=== PATIENT | female | born 1995 | race Caucasian/White ===

== ENCOUNTER → 2016-12-19 | Outpatient (CLI) | payer BC ==
[~2016-12-19] MED LIST: GADAVIST IV PRN; PATIENT'S ALLERGY INFO NEEDS ENTERED STA
--- NOTE | 2016-12-19 21:56 | DIAGNOSTIC IMAGING REPORT ---
MRI OF THE BRAIN AND PITUITARY WITHOUT A WITH GADOLINIUM CLINICAL HISTORY: Elevated prolactin level. A menorrhea. COMPARISON STUDY: No previous studies for comparison. FINDINGS: Imaging was performed the sagittal axial and coronal planes. Dynamic imaging through the pituitary was performed. The patient was administered 7 cc of intravenous Gadavist. Axial diffusion-weighted images reveal no evidence of acute or subacute infarction. There is no evidence of ventricular dilatation. Proton density T2-weighted and FLAIR images reveal no significant intraparenchymal signal abnormalities. The optic chiasm appears normal. The infundibulum is within the midline. There is an equivocal 3 mm focus of diminished enhancement involving the left lateral aspect of the pituitary gland. This could represent a tiny microadenoma. The pituitary gland appears otherwise normal measuring 6 mm in height. Whole brain post gadolinium images reveal no pathologically enhancing lesions. IMPRESSION: Equivocal tiny 3 mm left lateral pituitary microadenoma. Otherwise normal MRI of the brain. Electronically signed by: Roby Magana M.D. 12/19/2016 9:54 PM Dictated Date/Time: 12/19/2016 9:50 PM
== END | disposition home or self-care (01) ==
LOC: C.MRI 20:20
PROVIDERS: ATTEND Nurse Practitioner Obstetrics & Gynecology
DX: E22.1 Hyperprolactinemia (principal); N91.1 Secondary amenorrhea; D35.2 Benign neoplasm of pituitary gland

== ENCOUNTER 2017-05-21 01:52 | Emergency (ER) | payer BC ==
[~2017-05-21] VITALS: Ht 165.1 cm; Wt 71.8 kg
[2017-05-21 01:57] VITALS: Ht 165.1 cm; Wt 71.8 kg
[2017-05-21 02:26] LABS: BASO % 0.2 %; BASO ABS # 0.03 K/uL (0-0.2); EOS % 0.3 %; EOS ABS # 0.05 K/uL (0-0.5); HEMATOCRIT 46.5 % (37-47); IG# 0.08 K/uL (0.00-0.02); LYMPH % 10.4 %; LYMPH ABS # 2.03 K/uL (1.2-3.4); MEAN CELL VOLUME 97.9 fL (80-100); MEAN CORPUSCULAR HEMOGLOBIN 31.6 pg (25-34); MEAN CORPUSCULAR HGB CONC 32.3 g/dl (32-36); MONO % 4.6 %; MONO ABS # 0.89 K/uL (0.11-0.59); NEUT % 84.1 %; NEUT ABS # 16.42 K/uL (1.4-6.5); PLATELET COUNT 261 K/uL (130-400); RED CELL DISTRIBUTION WIDTH CV 12.9 % (11.5-14.5); RED CELL DISTRIBUTION WIDTH SD 46.3 fL (36.4-46.3)
--- NOTE | 2017-05-21 02:33 | EMERGENCY ROOM VISIT NOTE ---
History First contact with patient: 02:00 Chief Complaint: VOMITING Stated Complaint: VOMITING,CHEST PAIN,TROUBLE BREATHING History of Present Illness The patient is a 21 year old female who presents to the Emergency Room with complaints of a sharp pain in her right side. The patient reports that she has had a sharp pain in her right lower ribs/upper abdomen for the past 2 days. She states this pain worsens with a deep breath. She states that today, she has additionally developed pain in the middle and upper right abdomen. She has had multiple episodes of vomiting today. She states that she had been eating normally prior to this. The patient rates her discomfort a 2/10 at this time, but states that the pain comes in waves and becomes much more severe at times. She had one episode of diarrhea a few days ago, but otherwise her bowel movements have been normal. She denies urinary symptoms. She does take oral control pills and traveled to and from [place] last week. She denies any history of abdominal surgeries, but notes a family history of gallbladder disease. She does not smoke. She denies any personal or family history of blood clots. Review of Systems A complete 10 point review of systems was reviewed with the patient with pertinent positives and negatives as per history of present illness. All else were negative. Past Medical/Surgical History Medical Problems: (1) Hypothyroidism (2) Pituitary microadenoma Family History Gallbladder disease No Family History of: Thromboembolic disease Social History Smoking Status: Never Smoker Marital Status: single Housing Status: lives with roommate Occupation Status: [employer] student Current/Historical Medications Scheduled Levonorgestrel & Eth Estradiol (Vienva 0.1-20 mg-Mcg), 1 TAB PO DAILY Levothyroxine Sodium (Levothyroxine Sodium), 1 TAB PO DAILY Ondasetron Odt (Zofran Odt), 4 MG SL Q6H Physical Exam Vital Signs Date Time Temp Pulse Resp B/P (MAP) Pulse Ox O2 Delivery O2 Flow Rate FiO2 05/21/17 04:46 90 18 106/60 100 Room Air 05/21/17 03:42 36.7 99 18 114/77 100 Room Air 05/21/17 01:57 36.8 103 18 118/79 97 Room Air Physical Exam VITALS: Vitals are noted on the nurse's note and reviewed by myself. Vital signs stable. GENERAL: This is a 21-year-old female, in no acute distress, nondiaphoretic, well-developed well-nourished. SKIN: The skin was without rashes. EARS: External auditory canals clear, tympanic membranes pearly frazier without erythema or effusion bilaterally. EYES: Pupils equal round and reactive to light and accommodation. MOUTH: Mucous membranes moist. Tonsils are not enlarged. Pharynx without erythema or exudate. NECK: Supple without nuchal rigidity. No lymphadenopathy. HEART: Regular rate and rhythm without murmurs gallops or rubs. LUNGS: Clear to auscultation bilaterally without wheezes, rales or rhonchi. No retractions or accessory muscle use. ABDOMEN: Positive bowel sounds x 4. Soft, mild tenderness in the epigastric region. No guarding or rebound tenderness. NEURO: Patient was alert and oriented to person place and time. Medical Decision & Procedures ER Provider Diagnostic Interpretation: US RUQ: Normal right upper quadrant ultrasound Normal gallbladder without gallstones, wall thickening or pericholecystic fluid No intrahepatic or extrahepatic biliary ductal dilatation. Liver and pancreas appear unremarkable. Radiologist: Stu Pastor M.D. CT ABDOMEN & PELVIS With Contrast: Normal appendix. No bowel obstruction. Multiple fluid-filled loops of small bowel, possibly nonspecific enteritis. Liver, gallbladder, spleen, pancreas, adrenal glands, and kidneys are unremarkable. Urinary bladder and uterus appear normal. No acute osseous findings. Radiologist: Stu Pastor M.D. Laboratory Results 05/21/17 02:05 Red Blood Count 4.75, Mean Corpuscular Volume 97.9, Mean Corpuscular Hemoglobin 31.6, Mean Corpuscular Hemoglobin Concent 32.3, Mean Platelet Volume 9.0, Neutrophils (%) (Auto) 84.1, Lymphocytes (%) (Auto) 10.4, Monocytes (%) (Auto) 4.6, Eosinophils (%) (Auto) 0.3, Basophils (%) (Auto) 0.2, Neutrophils # (Auto) 16.42, Lymphocytes # (Auto) 2.03, Monocytes # (Auto) 0.89, Eosinophils # (Auto) 0.05, Basophils # (Auto) 0.03 05/21/17 02:05 Test 05/21/17 01:55 05/21/17 02:05 Urine Color DK YELLOW Urine Appearance CLEAR (CLEAR) Urine pH 5.0 (4.5-7.5) Urine Specific [place] 1.032 (1.000-1.030) Urine Protein NEG (NEG) Urine Glucose (UA) NEG (NEG) Urine Ketones TRACE (NEG) Urine Occult Blood TRACE (NEG) Urine Nitrite NEG (NEG) Urine Bilirubin NEG (NEG) Urine Urobilinogen NEG (NEG) Urine Leukocyte Esterase NEG (NEG) Urine WBC (Auto) 1-5 /hpf (0-5) Urine RBC (Auto) 0-4 /hpf (0-4) Urine Hyaline Casts (Auto) 0 /lpf (0-5) Urine Epithelial Cells (Auto) >30 /lpf (0-5) Urine Bacteria (Auto) NEG (NEG) Urine Test NEG (NEG) White Blood Count 19.50 K/uL (4.8-10.8) Red Blood Count 4.75 M/uL (4.2-5.4) Hemoglobin 15.0 g/dL (12.0-16.0) Hematocrit 46.5 % (37-47) Mean Corpuscular Volume 97.9 fL (80-100) Mean Corpuscular Hemoglobin 31.6 pg (25-34) Mean Corpuscular Hemoglobin Concent 32.3 g/dl (32-36) Platelet Count 261 K/uL (130-400) Mean Platelet Volume 9.0 fL (7.4-10.4) Neutrophils (%) (Auto) 84.1 % Lymphocytes (%) (Auto) 10.4 % Monocytes (%) (Auto) 4.6 % Eosinophils (%) (Auto) 0.3 % Basophils (%) (Auto) 0.2 % Neutrophils # (Auto) 16.42 K/uL (1.4-6.5) Lymphocytes # (Auto) 2.03 K/uL (1.2-3.4) Monocytes # (Auto) 0.89 K/uL (0.11-0.59) Eosinophils # (Auto) 0.05 K/uL (0-0.5) Basophils # (Auto) 0.03 K/uL (0-0.2) RDW Standard Deviation 46.3 fL (36.4-46.3) RDW Coefficient of Variation 12.9 % (11.5-14.5) Immature Granulocyte % (Auto) 0.4 % Immature Granulocyte # (Auto) 0.08 K/uL (0.00-0.02) D-Dimer < 190 ug/L FEU (0-500) Anion Gap 9.0 mmol/L (3-11) Est Creatinine Clear Calc Drug Dose 111.4 ml/min Estimated GFR () 123.0 Estimated GFR (Non- 106.1 BUN/Creatinine Ratio 22.9 (10-20) Calcium Level 8.4 mg/dl (8.5-10.1) Total Bilirubin 0.4 mg/dl (0.2-1) Direct Bilirubin 0.1 mg/dl (0-0.2) Aspartate Amino Transf (AST/SGOT) 26 U/L (15-37) Alanine Aminotransferase (ALT/SGPT) 43 U/L (12-78) Alkaline Phosphatase 58 U/L (45-117) Total Protein 8.1 gm/dl (6.4-8.2) Albumin 4.1 gm/dl (3.4-5.0) Lipase 123 U/L (73-393) Medications Administered Medications (Trade) Dose Ordered Sig/Kevin Route Start Time Stop Time Status Last Admin Dose Admin Ondansetron HCl (Zofran Inj) 4 mg NOW STAT IV 05/21/17 03:01 05/21/17 03:02 DC 05/21/17 03:05 4 MG Sodium Chloride 1,000 ml @ 999 mls/hr Q1H1M STAT IV 05/21/17 03:01 05/21/17 04:01 DC 05/21/17 03:05 999 MLS/HR Ondansetron HCl (ZOFRAN ODT 4MG Home Pack) 1 homepack UD ONCE PO 05/21/17 05:00 05/21/17 05:01 DC 05/21/17 05:02 1 HOMEPACK ECG Per My Interpretation Indication: abdominal pain Rate (beats per minute): 81 Rhythm: sinus with SA Findings: no acute ischemic change, no ectopy Comparison ECG Date: no prior available ED Course The patient was evaluated as above. Labs were drawn and IV access was obtained. Patient initially declined any medications. The patient became nauseous and had an episode of vomiting. She was medicated with 1 L normal saline solution and 4 mg Zofran. Patient was reevaluated and findings were discussed. She was feeling much better. She was given something to drink and tolerated it well. Discharge instructions were reviewed with the patient. The patient verbalized understanding of my assessment and treatment plan and was discharged home in good condition. Medical Decision Differential diagnosis includes cholecystitis, gastritis, gastroenteritis, appendicitis, small bowel obstruction, ovarian cyst, ovarian torsion, ectopic , hepatitis, pancreatitis, among others. The patient is a 21-year-old female who presents today complaining of right upper abdominal pain and vomiting. Labs revealed leukocytosis of 19,000. Labs were otherwise unremarkable. LFTs were within normal limits. Lipase was not elevated. Urinalysis was not suggestive of infection. Urine was negative. D-dimer was not elevated. Right upper quadrant ultrasound was initially performed and showed no evidence of gallbladder disease. CT was then performed due to patient's leukocytosis and symptoms and showed findings consistent with nonspecific enteritis. Patient is afebrile and well-appearing. She tolerated fluids after treatment with Zofran. She will be discharged home with Zofran and was instructed to follow-up with [facility] today for a repeat examination. She will return here for worsening symptoms. The patient's case was reviewed with Dr. Glasgow, ED attending physician, who agreed with my assessment and treatment plan. Based on the patient's presentation and work up, I feel the patient is stable for outpatient treatment. The patient was educated to return to the emergency department for any worsening of their current condition or new/concerning symptoms. She will follow up with [facility]. Medication Reconcilliation Current Medication List: was personally reviewed by me Blood Pressure Screening Patient's blood pressure: Normal blood pressure Impression Primary Impression: Vomiting Additional Impression: Enteritis Departure Information Dispostion Home / Self-Care Condition GOOD Prescriptions Ondasetron Odt (ZOFRAN ODT) 4 Mg Tab 4 MG SL Q6H for Nausea, #15 TAB Prov: Shagufta Ren .FLOR 05/21/17 Referrals [facility] (PCP) Patient Instructions My [facility] Additional Instructions You have been treated in the Emergency Department for your Abdominal Pain. Laboratory results and imaging studies have ruled out any emergent causes for your abdominal pain which would warrant admission or surgery. Your CT scan showed evidence of a gastroenteritis (most likely viral). You have been prescribed Zofran to be used for any nausea or vomiting. Take as prescribed. For pain control, you can use the following [id number] medicines (if >12 yo): - Regular strength (325mg/tab) Tylenol (acetaminophen) 2 tabs every 4-6 hours as needed. Do not exceed 12 tablets in a 24 hour period. Avoid taking more than 4 grams (4000 mg) of Tylenol per day. This includes any other sources of acetaminophen you may take on a regular basis. - Regular strength (200 mg/tab) Advil (ibuprofen) 1-2 tabs every 4-6 hours as needed. Do not exceed a dose of 3200 mg per day. Drink plenty of water and stay well hydrated. You should keep a very bland diet (crackers, toast, applesauce, bananas) until you are feeling better, then advance your diet as tolerated. Contact [facility] to schedule a follow-up appointment later today for recheck. Return to the emergency department if your symptoms persist despite treatment plan outlined above or if the following symptoms occur: Worsening pain, inability to keep anything down, high fever or other new/concerning symptoms. Problem Qualifiers Primary Impression: Vomiting Vomiting type: unspecified Vomiting Intractability: non-intractable Nausea presence: with nausea Qualified Codes: R11.2 - Nausea with vomiting, unspecified
[2017-05-21 02:44] LABS: ALBUMIN 4.1 gm/dl (3.4-5.0); CALCIUM 8.4 mg/dl (8.5-10.1); CREATININE 0.8 mg/dl (0.60-1.20); POTASSIUM 3.5 mmol/L (3.5-5.1)
[2017-05-21 02:47] LABS: TOTAL PROTEIN 8.1 gm/dl (6.4-8.2)
[2017-05-21] MEDS ORDERED: SODIUM CHLORIDE 0.9% 1000ML 1,000 ML IV STA (03:01)
[2017-05-21] MEDS ORDERED: ONDANSETRON INJ 2 MG/ML 2 ML VIAL IV STA (03:01)
[2017-05-21] MEDS ORDERED: OPTIRAY 320 IV PRN (03:30)
[2017-05-21 03:42] VITALS: TEMP 36.7
[2017-05-21] MEDS ORDERED: LEVO25TA5 PO (04:33)
[2017-05-21] MEDS ORDERED: [UNRECOGNIZED DRUG - CODE] PO (04:33)
[2017-05-21 04:46] VITALS: BP 106/60; PULSE 90; O2SAT 100
[2017-05-21] MEDS ORDERED: ONDA4TAB10 SL (04:51)
[2017-05-21] MEDS ORDERED: ONDANSETRON HOME PACK 4MG OD TAB PO ONE (05:00)
--- NOTE | 2017-05-21 06:55 | DIAGNOSTIC IMAGING REPORT ---
ABD/PELVIS IV CONTRAST ONLY CT DOSE: 323.13 mGy.cm HISTORY: Pain. Nausea. RUQ pain, vomiting TECHNIQUE: Multiaxial CT images of the abdomen and pelvis were performed following the use of intravenous contrast. A dose lowering technique was utilized adhering to the principles of ALARA. COMPARISON STUDY: None. FINDINGS: The lung bases are clear. The liver, spleen, gallbladder, pancreas, kidneys, and adrenal glands are within normal limits. Fluid-filled loops of small bowel with slight wall hyperemia.. The pelvic organs are unremarkable. No suspicious lytic or blastic osseous lesions. IMPRESSION: Nonspecific small bowel enteritis. Otherwise negative study. The above report was generated using voice recognition software. It may contain grammatical, syntax or spelling errors. Electronically signed by: Javon Buckley M.D. 05/21/2017 6:53 AM Dictated Date/Time: 05/21/2017 6:52 AM
--- NOTE | 2017-05-21 07:06 | DIAGNOSTIC IMAGING REPORT ---
GALLBLADDER-ABD LIMITED CLINICAL HISTORY: RUQ pain, vomiting TECHNIQUE: Ultrasound COMPARISON STUDY: None FINDINGS: Normal gallbladder. No shadowing gallstones. Common bile duct 4 mm. Liver pancreas and right kidney are unremarkable. No evidence for right renal hydronephrosis. IMPRESSION: Normal study. The above report was generated using voice recognition software. It may contain grammatical, syntax or spelling errors. Electronically signed by: Javon Buckley M.D. 05/21/2017 7:05 AM Dictated Date/Time: 05/21/2017 7:05 AM
== END 2017-05-21 05:09 | disposition home or self-care (01) ==
LOC: C.EDB 01:53
DX: K52.9 Noninfective gastroenteritis and colitis, unspecified (principal); E03.9 Hypothyroidism, unspecified; Z79.3 Long term (current) use of hormonal contraceptives; Z83.79 Family history of other diseases of the digestive system